=== PATIENT | male | born 1940 | race Caucasian/White ===

== ENCOUNTER → 2019-07-08 | Outpatient (CLI) | payer MEDICARE ==
--- NOTE | 2019-07-08 10:46 | REP ---
REASON: Murmur. COMPARISON: None. Multiple sonographic images of the right kidney show the right kidney to measure 10.7 x 5.5 x 6.0 cm and left kidney to measure 13.2 x 4.7 x 5.9 cm. The renal cortical echoes are slightly increased. There is cortical medullary differentiation with increased renal sinus echoes. There are no cystic or solid masses. There is no hydronephrosis. The urinary bladder is empty. IMPRESSION: Slightly increased renal cortical echoes and increased renal sinus adipose tissue suggesting either medical renal disease or early chronic renal changes which are probably age related, however, correlate clinically. Electronically Signed by Kelvin Jean DO 07/08/2019 12:27 P
--- NOTE | 2019-07-08 19:30 | ECHO ---
DATE OF PROCEDURE: 07/08/2019 REFERRING PHYSICIAN: Jaime Abbott DO INDICATION: Cardiac murmur. Height 172 cm, weight 102 kg. DIMENSIONS: IVS: 1.3 LV: 4.8 LVPW: 1.3 LA: 4.6 Aorta: 3.4 Mitral E wave velocity: 80 A wave: 59 Left atrial volume index: 37 IVC: 2.0 FINDINGS: The study is of acceptable technical quality. Left ventricle is of normal size and overall likely normal systolic function, I estimate ejection fraction (EF) around 55-60%. Right ventricle also appears normal. Both atria appear at least moderately enlarged, left atrial volume index corresponds to moderate LA enlargement as well. Aortic valve is probably tricuspid. It is poorly visualized but at least mild sclerosis is seen. There are also mild degenerative abnormalities of mitral valve with mitral annular calcifications. Tricuspid valve appears normal. Pulmonic valve was not well seen. No pericardial effusion is noted. Inferior vena cava is on upper limits of normal size and has reduced collapse with respiration indicative of at least mildly elevated central venous pressure. Aortic root is normal. Aortic arch also appears normal. Abdominal aorta was not well seen. Doppler interrogation of aortic valve reveals no stenosis or insufficiency. There is mild mitral insufficiency and mild tricuspid insufficiency. Calculated pulmonary artery pressure is at least 40 mmHg corresponding to at minimum moderate pulmonary hypertension. Evaluation of diastolic function is inconclusive because tissue Doppler velocity of mitral annulus were not recorded, but based on mitral inflow pattern and enlarged left atrium, I suspect likely grade 2 diastolic dysfunction. CONCLUSIONS: 1. Study is of acceptable technical quality. 2. Normal left ventricular (LV) size with mild left ventricular hypertrophy (LVH), grossly preserved LV systolic function and probably grade 2 diastolic dysfunction. 3. No hemodynamically significant valvular disease. 4. Likely elevated central venous pressure and at least moderate pulmonary hypertension. COMMENT: Subacute bacterial endocarditis (SBE) prophylaxis is not recommended. Study is consistent with hypertensive heart disease.
== END ==
LOC: M RAD 07:12
PROVIDERS: ATTEND Neuromusculoskeletal Medicine & OMM
DX: R01.1 Cardiac murmur, unspecified (principal); I10 Essential (primary) hypertension